=== PATIENT | female | born 1970 | race Caucasian/White ===

== ENCOUNTER 2022-08-16 08:58 | Outpatient (CLI) | payer BC | END 2022-08-16 08:59 | disposition home or self-care (01) | LOC: CT 08:58 | PROVIDERS: ATTEND Urology | DX: N28.89 Other specified disorders of kidney and ureter (principal); R35.0 Frequency of micturition; Z87.891 Personal history of nicotine dependence | CPT/HCPCS: 78306; A9503 ==

== ENCOUNTER 2023-07-05 12:30 | Outpatient (CLI) | payer BC ==
[2023-07-05 15:03] LABS: #Basophils 0.1 10x3/uL (0.0-0.2); #Eosinphils 0.3 10x3/uL (0.0-0.5); #Monocytes 0.4 10x3/uL (0.0-1.1); #Neutrophils 4.2 10x3/uL (1.5-8.4); %Eosinophils 4.5 % (0.0-6.0); %Lymphocytes 26.3 % (18.0-47.0); %Monocytes 5.5 % (0.0-10.0); %Neutrophils 62.6 % (40.0-75.0); Hemoglobin 15.7 g/dL (12.0-15.5); Mean Corpuscular HGB CONC 34.9 g/dL (32.0-36.0); Mean Corpuscular Hemoglobin 31.2 pg (27.0-33.0); Mean Corpuscular Volume 89.5 fl (81.6-98.3); Mean Platelet Volume 9.7 fl (7.4-10.4); Platelet Count 313 10x3/uL (150-450); RBC Distribution Width 11.9 % (11.5-14.5); Red Blood Cell (RBC) Count 5.03 10x6/uL (3.90-5.03); White Blood Cell (WBC) Count 6.7 10x3/uL (3.5-10.5)
[2023-07-05 15:22] LABS: ALT (SGPT) 21 U/L (8-55); AST (SGOT) 15 U/L (5-34); Albumin 4.9 g/dL (3.5-5.0); Alkaline Phosphatase 103 U/L (40-110); Anion Gap 14 mmol/L (10-20); BUN (Urea Nitrogen) 10 mg/dL (7.0-18.7); Bilirubin, Total 0.3 mg/dL (0.2-1.2); Calc. Creatinine Clearance 0 mL/min (70-130); Calcium 9.9 mg/dL (7.8-10.44); Carbon Dioxide 25 mmol/L (22-29); Chloride 104 mmol/L (98-107); Estimated GFR 63; Globulin 2.1 g/dL (2.4-3.5); Glucose 87 mg/dL (70-105); Potassium 4.1 mmol/L (3.5-5.1); Sodium 139 mmol/L (136-145)
== END 2023-07-05 12:31 | disposition home or self-care (01) ==
LOC: LABBT 12:30
PROVIDERS: ATTEND Surgery
DX: Z01.818 Encounter for other preprocedural examination (principal); K43.2 Incisional hernia without obstruction or gangrene
CPT/HCPCS: 80053; 85025; 93005; 93010

== ENCOUNTER 2023-07-11 06:57 | Day surgery (SDC) | payer BC ==
[2023-07-10 10:47] VITALS: BMI 27.8
[2023-07-11] MEDS ORDERED: Scopolamine 1 mg/72 hour Patch ONE (08:12)
[2023-07-11] MEDS ORDERED: ePHEDrine Sulfate 50 MG/10 ML VIAL ONE (08:54)
[2023-07-11] MEDS ORDERED: fentaNYL PF 100 MCG/2 ML SYRINGE ONE (08:54)
[2023-07-11] MEDS ORDERED: Rocuronium Bromide 10 MG/ML (10ML VIAL) ONE (08:55)
[2023-07-11] MEDS ORDERED: Midazolam HCl 2 mg/2 ml Vial ONE (08:55)
[2023-07-11] MEDS ORDERED: PROPOFOL 20 ML ONE (08:56)
[2023-07-11] MEDS ORDERED: Bupivacaine 0.25% HCL 30 ML VIAL ONE ×2 (08:57→10:19)
[2023-07-11] MEDS ORDERED: EPINEPHrine 1 MG/ML VIAL ONE (08:57)
[2023-07-11] MEDS ORDERED: Ondansetron PF 4 MG/2 ML Vial ONE (09:21)
[2023-07-11] MEDS ORDERED: Ketorolac Tromethamine 30 MG (1 mL) VIAL ONE (09:21)
[2023-07-11] MEDS ORDERED: CEFAZOLIN 2 GM VIAL ONE (09:26)
[2023-07-11] MEDS ORDERED: Sodium Chloride 0.9% 100 ML ONE (09:26)
[2023-07-11] MEDS ORDERED: Metoclopramide HCl 10 MG (2 mL) VIAL ONE (09:40)
[2023-07-11] MEDS ORDERED: Dexamethasone 20 MG/5 ML VIAL ONE (09:47)
[2023-07-11] MEDS ORDERED: Glycopyrrolate 0.2 MG/ML 5 ML SYRINGE ONE (11:39)
[2023-07-11] MEDS ORDERED: NEOSTIGMINE 3 MG/3 ML SYR 3 MG/3 ML SYRINGE ONE (11:39)
[2023-07-11] MEDS ORDERED: fentaNYL 50 mcg/mL 1 mL Vial ONE (12:37)
== END 2023-07-11 15:07 | disposition home or self-care (01) ==
LOC: SDC 06:57
PROVIDERS: ATTEND Surgery
PROC: 0WUF4JZ Supplement Abdominal Wall with Synthetic Substitute, Percutaneous Endoscopic Approach (ICD-10-PCS; principal; 2023-07-11)
DX: K43.2 Incisional hernia without obstruction or gangrene (principal); F32.A Depression, unspecified; J45.909 Unspecified asthma, uncomplicated; I10 Essential (primary) hypertension; G47.00 Insomnia, unspecified; Z98.890 Other specified postprocedural states; Z98.84 Bariatric surgery status; Z90.89 Acquired absence of other organs; Z87.891 Personal history of nicotine dependence; Z88.5 Allergy status to narcotic agent; Z91.041 Radiographic dye allergy status; Z79.51 Long term (current) use of inhaled steroids; Z79.899 Other long term (current) drug therapy
CPT/HCPCS: A4314; C1781; J0171; J0665; J1100; J1885; J2250; J2405; J2704; J2765; J3010; J3490